=== PATIENT | male | born 1970 | race Caucasian/White ===

== ENCOUNTER 2019-08-02 17:31 | Emergency (ER) | payer OTHER ==
[2019-08-02 20:33] LABS: ABS Eosinophils 0.4 10^3/ul (0-0.6); ABS Lymphocytes 1.4 10^3/ul (1.0-4.8); ABS Monocytes 0.5 10^3/ul (0-0.8); ABS Neutrophils 3.4 10^3/ul (1.5-7.7); Eosinophil % 6.4 %; Hematocrit 34 % (42-52); Hemoglobin 11.1 g/dL (14.0-18.0); Lymphocyte % 24.9 %; Mean Corpuscular HGB Conc 33 g/dL (31-36); Mean Corpuscular Hemoglobin 29 pg (27-31); Mean Corpuscular Volume 87 fL (80-94); Mean Platelet Volume 7.7 fL (7.4-10.4); Nucleated Red Blood Cells % 0.1; Platelet Count 257 10^3/uL (150-450); Red Blood Count 3.85 10^6 /uL (4.18-5.48); Red Cell Distribution Width 16 % (10-15); White Blood Count 5.7 10^3/uL (3.5-10.8)
[2019-08-02 20:59] LABS: Albumin 2.9 g/dL (3.2-5.2); Albumin/Globulin Ratio 1.6 (1-3); BUN/Creatinine Ratio 9.9 (8-20); Calcium 7.4 mg/dL (8.6-10.3); EGFR African American 123.6 (>60); EGFR Non-African American 102.1 (>60); Globulin 1.8 g/dL (2-4); Potassium 3.3 mmol/L (3.5-5.0); Total Bilirubin 0.3 mg/dL (0.2-1.0); Total Protein 4.7 g/dL (6.4-8.9)
--- NOTE | 2019-08-02 23:29 | ED ---
Lower Extremity - HPI Summary HPI Summary: Patient complains of bilateral lower leg edema times months, worse in the past 3 days. Symptoms improve when patient is sitting down or lying down, return when patient is standing up again. Denies fever, cough, sore throat, CP, SOB, N /V/D, abdominal pain, change in urine, change in BM. - History of Current Complaint Chief Complaint: EDGeneral Stated Complaint: BOTH LEGS ANS FEET SWOLLEN PER PT Time Seen by Provider: 08/02/19 23:06 Hx Obtained From: Patient Mechanism Of Injury: Unknown Severity Initially: Moderate Severity Currently: Moderate Pain Intensity: 5 Pain Scale Used: 0-10 Numeric Timing: Intermittent Location: Is Discrete @ Character Of Pain: Throbbing Associated Signs And Symptoms: Positive: Swelling Aggravating Factor(s): Standing, Ambulation Alleviating Factor(s): Rest, Elevation Able to Bear Weight: Yes - Allergies/Home Medications Allergies/Adverse Reactions: Allergies Allergy/AdvReac Type Severity Reaction Status Date / Time No Known Allergies Allergy Verified 08/02/19 17:52 Home Medications: Home Medications Buprenorphine 8 mg PO DAILY 08/02/19 [History Confirmed 08/02/19] PMH/Surg Hx/FS Hx/Imm Hx Endocrine/Hematology History: Denies: Hx Anticoagulant Therapy Cardiovascular History: Denies: Hx Pacemaker/ICD History: Denies: Hx Dialysis Sensory History: Denies: Hx Eye Prosthesis Opthamlomology History: Denies: Hx Legally Blind EENT History: Denies: Hx Deafness Neurological History: Denies: Hx Dementia Infectious Disease History: No Infectious Disease History: Denies: Traveled Outside the [place] in Last 30 Days - Family History Known Family History: Positive: Non-Contributory - Social History Alcohol Use: None Substance Use Type: Reports: None Smoking Status (MU): Heavy Every Day Tobacco Smoker Review of Systems Constitutional: Negative Eyes: Negative ENT: Negative Cardiovascular: Negative Respiratory: Negative Gastrointestinal: Negative Genitourinary: Negative Musculoskeletal: Negative Skin: Other Neurological: Negative Psychological: Normal All Other Systems Reviewed And Are Negative: Yes Physical Exam - Summary Physical Exam Summary: Mild nonpitting swelling to bilateral lower extremities below knee. Patient states his swelling has significantly decreased as he has been sitting in the waiting room for hours. Lung sounds clear to auscultation bilaterally. Triage Information Reviewed: Yes Vital Signs On Initial Exam: Initial Vitals Temp Pulse Resp BP Pulse Ox 97.8 F 63 19 157/101 99 08/02/19 17:49 08/02/19 17:49 08/02/19 17:49 08/02/19 17:49 08/02/19 17:49 Vital Signs Reviewed: Yes Appearance: Positive: Well-Appearing Skin: Positive: Warm Head/Face: Positive: Normal Head/Face Inspection Eyes: Positive: Normal Neck: Positive: Supple Respiratory/Lung Sounds: Positive: Clear to Auscultation Cardiovascular: Positive: Normal Abdomen Description: Positive: Nontender Musculoskeletal: Positive: Normal Neurological: Positive: Normal Psychiatric: Positive: Normal AVPU Assessment: Alert - [place] Coma Scale Best Eye Response: 4 - Spontaneous Best Motor Response: 6 - Obeys Commands Best Verbal Response: 5 - Oriented Coma Scale Total: 15 Procedures - Sedation Patient Received Moderate/Deep Sedation with Procedure: No Diagnostics - Vital Signs Vital Signs Temp Pulse Resp BP Pulse Ox 08/02/19 20:31 98.0 F 66 14 129/82 99 08/02/19 17:49 97.8 F 63 19 157/101 99 - Laboratory Lab Results: Lab Results 08/02/19 08/02/19 Range/Units 20:25 20:25 WBC 5.7 (3.5-10.8) 10^3/uL RBC 3.85 L (4.18-5.48) 10^6 /uL Hgb 11.1 L (14.0-18.0) g/dL Hct 34 L (42-52) % MCV 87 (80-94) fL MCH 29 (27-31) pg MCHC 33 (31-36) g/dL RDW 16 H (10-15) % Plt Count 257 (150-450) 10^3/uL MPV 7.7 (7.4-10.4) fL Neut % (Auto) 60.0 % Lymph % (Auto) 24.9 % [place] % (Auto) 8.0 % Eos % (Auto) 6.4 % Baso % (Auto) 0.7 % Absolute Neuts (auto) 3.4 (1.5-7.7) 10^3/ul Absolute Lymphs (auto) 1.4 (1.0-4.8) 10^3/ul Absolute Monos (auto) 0.5 (0-0.8) 10^3/ul Absolute Eos (auto) 0.4 (0-0.6) 10^3/ul Absolute Basos (auto) 0.0 (0-0.2) 10^3/ul Absolute Nucleated RBC 0.0 10^3/ul Nucleated RBC % 0.1 Sodium 138 (135-145) mmol/L Potassium 3.3 L (3.5-5.0) mmol/L Chloride 108 (101-111) mmol/L Carbon Dioxide 27 (22-32) mmol/L Anion Gap 3 (2-11) mmol/L BUN 8 (6-24) mg/dL Creatinine 0.81 (0.67-1.17) mg/dL Est GFR ( Amer) 123.6 (>60) Est GFR (Non-Af Amer) 102.1 (>60) BUN/Creatinine Ratio 9.9 (8-20) Glucose 107 H (70-100) mg/dL Calcium 7.4 L (8.6-10.3) mg/dL Total Bilirubin 0.30 (0.2-1.0) mg/dL AST 29 (13-39) U/L ALT 44 (7-52) U/L Alkaline Phosphatase 140 H (34-104) U/L Total Protein 4.7 L (6.4-8.9) g/dL Albumin 2.9 L (3.2-5.2) g/dL Globulin 1.8 L (2-4) g/dL Albumin/Globulin Ratio 1.6 (1-3) Result Diagrams: 08/02/19 20:25 08/02/19 20:25 Lab Statement: Any lab studies that have been ordered have been reviewed, and results considered in the medical decision making process. Lower Extremity Course/Dx - Course Course Of Treatment: Patient complains of bilateral lower leg edema times months , worse in the past 3 days. Symptoms improve when patient is sitting down or lying down, return when patient is standing up again. Denies fever, cough, sore throat, CP, SOB, N/V/D, abdominal pain, change in urine, change in BM. Vital signs within normal limits. Potassium 3.3. Potassium by mouth administered. Labs otherwise unremarkable. Recommended compression socks and follow-up with primary care. - Diagnoses Provider Diagnoses: Edema leg, Hypokalemia Discharge ED - Sign-Out/Discharge Documenting (check all that apply): Patient Departure - Discharge Plan Condition: Stable Disposition: HOME Patient Education Materials: Leg Edema (ED) Referrals: No Primary Care Phys,NOPCP [Primary Care Provider] - [facility] [Outside] Additional Instructions: Try compression stockings. Continue to elevate legs as you are doing. Follow- up with [facility] for further evaluation. Return to the ED for any new or worsening symptoms. - Billing Disposition and Condition Condition: STABLE Disposition: Home
[2019-08-03] MEDS ORDERED: Potassium Chlor TAB* 20 MEQ TAB.ER PO ONE (00:52)
[2019-08-03 01:21] VITALS: BP 126/74
== END 2019-08-03 01:05 | disposition home or self-care (01) ==
LOC: ED 17:31
DX: R60.0 Localized edema (principal); E87.6 Hypokalemia; F17.200 Nicotine dependence, unspecified, uncomplicated; Z79.899 Other long term (current) drug therapy
CPT/HCPCS: 36415; 80053; 85025; 99282